=== PATIENT | male | born 1940 | race Caucasian/White ===

== ENCOUNTER → 2017-05-16 | Outpatient (CLI) | payer MEDICARE, MEDICAID ==
[~2017-05-16] MED LIST: CEFTIN500 MG PO; CEFUROXIME AXE500 MG PO; CIPROFLOXACIN500 M2 PO; FLEXERIL10 MG PO; FLOMAX 0.4MG C0.4 MG PO; KLOR-CON M2020 ME1; LEVAQUIN500 MG PO; LEVOCETIRIZINE D5 MG PO; LISINOPRIL 5MG T5 MG NG; LISINOPRIL/HCTZ1 TA3 PO; LOPID600 MG PO; MECLIZINE25 MG PO; PRAVASTATIN 40M40 MG PO; WARFARIN SOD5 MG PO; WARFARIN SODIU7.5 MG; WARFARIN SODIUM1 MG PO; XARELTO15 MG PO
--- NOTE | 2017-05-17 15:21 | RADIOLOGY REPORT PS360 ---
History and Indications: Hypertension, abnormal EKG. Procedure: Patient received a 0.4 mg of Lexiscan, resting heart rate was 60 beats per, resting blood pressure 175/80, with Lexiscan maximum heart rate achieved was 115 beats per minute, which is less than 85% of the maximum predicted heart rate and a blood pressure was 156/77. With Lexiscan patient complained of mild chest discomfort and dizziness. Electrocardiogram: Resting electrocardiogram showed atrial fibrillation, with Lexiscan there is less than 1.[address] segment depression noted from the baseline EKG. The EKG portion of the Lexiscan Myoview is nondiagnostic. Cardiac stress and resting SPECT images: Cardiac stress and rest SPECT images were obtained using technetium 99 Myoview 10.8 mCi at rest and 30.6 mCi at stress, gated SPECT further analysis of segmental wall motion and calculation of the ejection fraction also done. Cardiac stress and rest SPECT images show uniform myocardial activity without any segmental perfusion abnormality, computer derived ejection fraction is 57% with no obvious regional wall motion abnormality, right ventricle is normal size and contractility. Conclusion: 1. The EKG portion of the Lexiscan Myoview is nondiagnostic. 2. No obvious scintigraphic evidence of reversible ischemia seen, computer derived ejection fraction is 57% with no obvious regional wall motion abnormality. Right ventricle is normal size and contractility.
--- NOTE | 2017-05-17 16:23 | RADIOLOGY REPORT PS360 ---
ECHO ADULT PROCEDURE: INDICATIONS FOR THE TEST: Chest pain COPD Heart Murmur Tobacco SmokingEX Palpitations Fatigue Syncope Edema Hypertension+Diabetes Mellitus Rheumatic Fever SOB BARRETT Obesity Hyperlipidemia Family History HD Additional History Abn EKG, hx of AF PATIENT INFORMATION HEIGHT: 69 WEIGHT:154 GENDER: Male B/P:196/108 2-D/M-MODE INTERPRETATION: 2-D MEASUREMENTS OBSERVED VALUES IN CMS Right Ventricular Dimension (RVDd) 2.4 Interventricular Septum (Thickness)(IVsd) 1.3 Left Ventricular Internal Dimensions(LVIDd) 4.4 Left Ventricular Posterior Wall (Thickness)(LVPWd) 1.2 Aortic Root 2.9 Aortic Cusp Separation 2.1 Left Atrial Dimensions (LAD) 4.5 2D 1. Left atrium is mildly enlarged, left ventricle is normal size, there is mild concentric left ventricular hypertrophy, visually estimated ejection fraction of 55% with no obvious regional wall motion abnormality. 2. The right atrium is mildly enlarged, right ventricle is normal size and contractility. 3. The aortic valve is minimally thickened and fibrosed. 4. The mitral valve has mitral calcification, mitral leaflets are minimally thickened. 5. The tricuspid valve is grossly normal. 6. The pulmonic valve is poorly visualized. 7. No significant pericardial effusion noted. DOPPLER INTERROGATION: Doppler interrogation of the aortic, mitral and tricuspid valvular presence of mild aortic, mild mitral and tricuspid regurgitation, tricuspid regurgitant jet velocity insufficient for calculation of the right ventricular systolic pressure. CONCLUSION: 1. Mildly enlarged left atrium, normal left ventricular size, mild concentric left ventricular hypertrophy, visually estimated ejection fraction 55% with no obvious regional wall motion abnormality 2. Mild aortic, mild mitral and tricuspid regurgitation. 3. No significant pericardial effusion noted.
== END ==
LOC: RAD 06:40
DX: R94.31 Abnormal electrocardiogram [ECG] [EKG] (principal); I10 Essential (primary) hypertension; N18.9 Chronic kidney disease, unspecified
CPT/HCPCS: A9502; J2785

== ENCOUNTER → 2017-06-18 | Outpatient (CLI) | payer MEDICARE, MEDICAID ==
[2017-06-18 11:54] LABS: LYMPH # 1.2 K/mm3 (0.7-4.5); LYMPH % 10.3 % (10-50)
[2017-06-18 12:11] LABS: HEMOGLOBIN 14.3 g/dL (14.1-18.0)
[2017-06-18 12:43] LABS: BUN 26 mg/dL (7-18); GFR (ESTIMATED) 42 ML/MIN (>60)
== END ==
LOC: LAB 11:24
PROVIDERS: Surgery
DX: K40.90 Unilateral inguinal hernia, without obstruction or gangrene, not specified as recurrent (principal); Z01.818 Encounter for other preprocedural examination